=== PATIENT | female | born 1990 | race Caucasian/White ===

== ENCOUNTER 2023-10-30 10:35 | Inpatient (IN) | payer BC ==
[2023-12-05] VITALS (10 sets, daily range): BP systolic 104–165; BP diastolic 49–89; PULSE 57–78; TEMP 97.8–98.6
[2023-12-05] MEDS ORDERED: LR 1,000 ML IV SCH (05:00)
[2023-12-05] MEDS ORDERED: Midazolam 2 MG/2 ML VIAL ONE (07:46)
[2023-12-05] MEDS ORDERED: Rocuronium 50 MG/5 ML Multi-Dose VIAL ONE ×2 (07:46→10:56)
[2023-12-05] MEDS ORDERED: fentaNYL 50 MCG/ML 5 ML VIAL ONE (07:46)
[2023-12-05] MEDS ORDERED: Succinylcholine PF 200 MG/10 ML SYRINGE IV ONE (07:46)
[2023-12-05] MEDS ORDERED: Ondansetron 4 MG/2 ML VIAL ONE (07:50)
[2023-12-05] MEDS ORDERED: NS 20 ML IV ONE (07:50)
[2023-12-05] MEDS ORDERED: Phenylephrine 10 MG/ML VIAL ONE (07:50)
[2023-12-05] MEDS ORDERED: Ketorolac 30 MG/ML VIAL ONE (07:50)
[2023-12-05] MEDS ORDERED: dexAMETHasone 10 MG/ML VIAL ONE (07:50)
[2023-12-05] MEDS ORDERED: Glycopyrrolate 0.2 MG/ML 1 ML VIAL ONE (07:50)
[2023-12-05] MEDS ORDERED: NS 100 ML IV ONE ×2 (07:51→08:31)
[2023-12-05] MEDS ORDERED: Lidocaine PF 2% (20 MG/ML) 5 ML VIAL ONE (07:51)
[2023-12-05] MEDS ORDERED: Scopolamine 1 MG Delivered 3-Day PATCH TD SCH (08:15)
[2023-12-05] MEDS ORDERED: diazePAM 5 MG TAB PO ONE (08:22)
[2023-12-05] MEDS ORDERED: diazePAM 5 MG TAB PO SCH (08:30)
[2023-12-05] MEDS ORDERED: BUSPAR DIVIDOSE15 MG PO (09:19)
[2023-12-05] MEDS ORDERED: PROBIOTIC DIGE1 EACH PO (09:19)
[2023-12-05] MEDS ORDERED: HYDROmorphone 1 MG/1 ML SYRINGE [PACU/SDC ONLY] IV PRN (11:30)
[2023-12-05] MEDS ORDERED: Ondansetron 4 MG/2 ML VIAL IV PRN ×2 (11:30→12:30)
[2023-12-05] MEDS ORDERED: Morphine 2 MG/1 ML VIAL [PACU/SDC ONLY] IV PRN (11:30)
[2023-12-05] MEDS ORDERED: droPERidol 2.5 MG/ML 2 ML VIAL IV PRN (11:30)
[2023-12-05] MEDS ORDERED: hydrALAZINE 20 MG/ML 1 ML VIAL IV PRN (11:30)
[2023-12-05] MEDS ORDERED: fentaNYL 50 MCG/ML 1 ML SYRINGE/VIAL [PACU/SDC ONLY] IV PRN (11:30)
[2023-12-05] MEDS ORDERED: fentaNYL 50 MCG/ML 2 ML VIAL ONE (12:11)
[2023-12-05] MEDS ORDERED: oxyCODONE 5 MG TAB PO PRN (12:30)
[2023-12-05] MEDS ORDERED: HYDROmorphone 0.5 MG/0.5 ML SYRINGE IV PRN (12:30)
[2023-12-05] MEDS ORDERED: Naloxone 0.4 MG/ML VIAL IV PRN (12:30)
--- NOTE | 2023-12-05 13:18 | NUR ---
Report called to this nurse from PACU.
[2023-12-05] MEDS ORDERED: Acetaminophen 500 MG TAB PO SCH (13:20)
[2023-12-05 15:32] LABS: HEMATOCRIT 39.8 % (37.0-47.0); HEMOGLOBIN 13.4 g/dl (12.5-16.0); MEAN CELL VOLUME 87 fl (80.0-100.0); MEAN CORPUSCULAR HEMOGLOBIN 29 pg (27-31); MEAN CORPUSCULAR HGB CONC 34 g/dl (33.0-37.0); MEAN PLATELET VOLUME 9.9 fl (7.4-10.4); PLATELET COUNT 331 K/mm3 (130-400); RED BLOOD COUNT 4.56 M/mm3 (4.10-5.30); REDCELL DISTRIBUTION WIDTH-CV 13.6 % (11.5-14.5)
--- NOTE | 2023-12-05 15:39 | NUR ---
WBC RESULT CALLED TO Dr. Parks notifed. Also new order for Buspar.
[2023-12-05 15:44] LABS: CALCIUM 9.2 mg/dL (8.4-10.2); CREATININE, serum 0.8 mg/dL (0.57-1.11)
--- NOTE | 2023-12-05 16:00 | NUR ---
Pt. reports Bales catheter discomfort. Dr. Parks here. Asked if ok to D/C bales at this time? Dr. Parks ok's this. Bales catheter removed. 10 ml balloon. Balloon intact. Pt. tolerated well.
--- NOTE | 2023-12-05 20:00 | NUR ---
Pt. sitting in recliner w/ family at bedside upon entry. Administered scheduled meds per JUN. Shift assessment complete. Abdominal dressings CDI. MARGAUX drains #1 and #2 both to bulb suction w/ bloody drainage. Unable to hear bowel sounds through abdominal binder, but pt. reports passing flatus and voiding. No other outstanding findings. Pt. requested collins bottle, RN obtained bottle from OB. No further requests or complaints at this time.
[2023-12-05] MEDS ORDERED: Docusate Sodium 100 MG CAP PO SCH (21:00)
[2023-12-05] MEDS ORDERED: busPIRone 7.5 MG TABLET PO SCH (21:00)
[2023-12-05] MEDS ORDERED: Patient's Own Medication Item PO SCH (21:00)
[2023-12-06] VITALS (11 sets, daily range): BP systolic 104–139; BP diastolic 64–81; PULSE 46–91; TEMP 98–98.6
--- NOTE | 2023-12-06 04:51 | NUR ---
Pt. has had fairly uneventful evening. Family was at bedside early yesterday evening and pt's mood appeared jovial. Pt. ambulated in the halls w/out assist during the night. Pt. c/o mild-moderate pain twice during the shift. Pain managed w/ scheduled Tylenol and one dose of PRN roxycodone per JUN. Otherwise, vital signs have been stable throughout this shift.
--- NOTE | 2023-12-06 08:47 | NUR ---
Floor Polisher received consult for patient as she answered "sometimes" when asked if she feels safe at home. Consult was cancelled as patient stated she misunderstood the question. SW met with patient alone to complete initial intake. Patient lives in [place] with her , Juan (ph#[phone]) and their three children, ages 12, 7 and [address] Childers for primary care and gets medications from [facility] in [place]. 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 Patient does not use any DME and is independent with ADLS. Patient inquired about a shower chair/tub transfer bench so SW provided information about where one can be purchased. Patient does not have DPOA-HC and was not interested in completing one at this time. Patient advised she plans to return home at time of discharge. Patient stated her has two weeks off to help her and her mother and sister also live nearby. SW asked patient if she feels safe at home and she responded "very". Patient stated during a pre op phone call she thought the RN was asking if she still vaped as she used to vape. Patient stated she responded occasionally. At a pre op visit, she stated she explained to the nurse the misunderstanding. Patient was adamant that she is safe at home and feels supported by her . Discharge Plan: Home
[2023-12-06] MEDS ORDERED: busPIRone 7.5 MG TABLET PO SCH (09:00)
--- NOTE | 2023-12-06 12:46 | NUR ---
observation: pt was a sleep when director marketing communications attempted to visit. Intervention: attempted visit outcome: director marketing communications servies are avaible if pt would like to speak with a director marketing communications
--- NOTE | 2023-12-06 20:00 | NUR ---
Pt. reported pain was increasing- rated 6/10. Administered scheduled meds and PRN roxycodone per MA. Shift assessment complete. Noted lung sounds are diminished at CELESTINE bases but CELESTINE upper lobes are clear. Pt's respirations are shallow. However, pt. is using incentive spirometer. Abdominal dressings CDI. CELESTINE MARGAUX drains to bulb suction w/ serosanguinous drainage. Unable to listen to bowel sounds through abdominal binder, but pt. endorses passing flatus and voiding normally. All other findings WNL. No further complaints or request at this time.
[2023-12-07 00:09] VITALS: BP 117/69; PULSE 61; TEMP 97.9
[2023-12-07 01:00] VITALS: BP_SYST 117
--- NOTE | 2023-12-07 01:20 | NUR ---
Changed dressing to INT per pt's request.
[2023-12-07 03:52] VITALS: BP 115/78; PULSE 57; TEMP 98
[2023-12-07 04:51] VITALS: BP_SYST 115
--- NOTE | 2023-12-07 04:51 | NUR ---
Pt. had uneventful night. Family was at bedside early in the evening. Pt. had minimal complaints of pain. Pain controlled w/ scheduled tylenol and PRN roxycodone. Pt. is on room air and reports shallow respirations are improving with use of incentive spirometer. During the night, pt. ambulated in the halls indepently w/ steady gait. No complaints or request at this time.
[2023-12-07 06:56] LABS: BASO # 0.1 K/mm3 (0.0-0.2); BASO % 0.4 % (0.0-2.0); EOS # 0.2 K/mm3 (0.0-0.7); EOS % 1.4 % (0.0-4.0); GRAN # 7.4 K/mm3 (1.4-6.5); GRAN % 58.7 % (42.2-75.2); LYMPH # 4.2 K/mm3 (1.2-3.4); LYMPH % 33.8 % (20.0-51.0); MEAN CELL VOLUME 91 fl (80.0-100.0); MEAN CORPUSCULAR HGB CONC 32 g/dl (33.0-37.0); MONO # 0.7 K/mm3 (0.1-0.6); MONO % 5.5 % (1.7-9.3); PLATELET COUNT 296 K/mm3 (130-400); REDCELL DISTRIBUTION WIDTH-CV 14.1 % (11.5-14.5)
[2023-12-07 06:58] LABS: HEMATOCRIT 33.6 % (37.0-47.0); HEMOGLOBIN 10.9 g/dl (12.5-16.0); MEAN CORPUSCULAR HEMOGLOBIN 29 pg (27-31)
[2023-12-07 07:15] LABS: CALCIUM 8.6 mg/dL (8.4-10.2); CREATININE, serum 0.75 mg/dL (0.57-1.11); POTASSIUM 3.6 mEq/L (3.5-4.5)
[2023-12-07 08:00] VITALS: BP 111/69; PULSE 69; TEMP 98.3
[2023-12-07 09:45] VITALS: BP_SYST 111
--- NOTE | 2023-12-07 09:45 | NUR ---
Pt. sitting up in chair. Pt. is A&OX3, assessment complete. INT to rt. ac patent, INT to lt hand patent. Dr. Parks in to see pt. Dr. parks took down dressing and removed both MARGAUX drains. Gauze and tegaderm applied to drain sites, minimal drainage noted. Midline incision with bienvenido intact. Airstrip applied to protect site from abd. binder. Pt. reported pain at a 6 on pain scale, see mar. Pt. denies further needs, call light within reach.
[2023-12-07] MEDS ORDERED: TYLENOL 500MG500 MG PO (09:56)
[2023-12-07] MEDS ORDERED: ROXICODONE 55 MG/TAB PO (09:56)
--- NOTE | 2023-12-07 11:00 | NUR ---
Pt. has discharge orders. INT to rt. ac and lt. hand discontinued. Reviewed discharge packet with the pt. Pt. voices understanding and denies questions. Pt. dressed and escorted out by wheelchair.
== END 2023-12-07 11:06 | disposition home or self-care (01) | DRG 355 ==
LOC: SURG 12-03 12:30 → INPTSU 12-05 07:29 → SURG 12-05 09:45
PROVIDERS: Nurse Anesthetist, Certified Registered; ADMIT Surgery
PROC: 0WUF0JZ Supplement Abdominal Wall with Synthetic Substitute, Open Approach (ICD-10-PCS; principal; 2023-12-05 09:45)
DX: K43.6 Other and unspecified ventral hernia with obstruction, without gangrene (principal); Z91.018 Allergy to other foods
CPT/HCPCS: A4314; A9284; C1781; J0690; J1100; J1170; J1650; J1885; J2250; J2371; J2405; J2704; J2795; J3010; J7120